=== PATIENT | female | born 1985 | race African-American/Black ===

== ENCOUNTER 2019-02-26 18:34 | Emergency (ER) | payer MEDICAID, OTHER ==
[~2019-02-26] VITALS: Ht 177.8 cm; Wt 108.9 kg
[2019-02-26 19:00] VITALS: BP 120/78
--- NOTE | 2019-02-26 19:01 | NUR ---
ED Nurse Note: Pt is here for Albuterol HHN, ran out of medication x 1 month. AOx4, VSS olga. Will cont to monitor.
--- NOTE | 2019-02-26 19:06 | NUR ---
ED Nurse Note: Received report from Savi/RN. Pt is A/O X 4. VSS, will continue to monitor.
--- NOTE | 2019-02-26 19:06 | Emergency Room Report ---
History of Present Illness General Chief Complaint: Asthma Source: Patient, Medical Record Present Illness HPI 33-year-old female with history of type 2 diabetes and asthma currently controlled with metformin and albuterol inhaler here complaining of asthma exacerbation x1 month. Patient said that she ran out of her albuterol inhaler 2 weeks ago. She is also on Qvar and albuterol nebulizer treatment. Patient denies shortness of breath, chest pain, palpitation, cough, congestion, sore throat, dizziness and headache. Patient is requesting a refill for her inhalers. Patient is currently in no distress is sitting comfortably. Denies history of smoking. Allergies: Coded Allergies: ASPIRIN (Verified Allergy, Unknown, 02/26/19) Patient History Past Medical History: see triage record Past Surgical History: unable to obtain Pertinent Family History: none Last Menstrual Period: 02/19/19 Now: No : 4 Para: 1 Immunizations: UTD Reviewed Nursing Documentation: PMH: Agreed; PSxH: Agreed Nursing Documentation-PMH Hx Hypertension: Yes Hx Diabetes: Yes - Type 2 Hx Cancer: Yes - Breast History Of Psychiatric Problem: Yes - Anxiety, Bipolar Disorder, PTSD Review of Systems All Other Systems: negative except mentioned in HPI Physical Exam Vital Signs Date Time Temp Pulse Resp B/P (MAP) Pulse Ox O2 Delivery O2 Flow Rate FiO2 02/26/19 18:48 98.2 76 18 121/79 (93) 97 Room Air Sp02 EP Interpretation: reviewed, normal General Appearance: normal inspection, well appearing, no apparent distress, alert, GCS 15 Head: normocephalic, atraumatic Eyes: bilateral eye normal inspection, bilateral eye PERRL ENT: normal ENT inspection, hearing grossly normal, normal pharynx Neck: normal inspection, supple Respiratory: chest non-tender, normal breath sounds, no rhonchi, no respiratory distress, wheezing Cardiovascular #1: normal inspection, normal peripheral pulses, regular rate, rhythm, no murmur Gastrointestinal: normal inspection, soft, no bruit Genitourinary: no CVA tenderness Musculoskeletal: back normal Neurologic: normal inspection, alert, oriented x3 Psychiatric: normal inspection, judgement/insight normal Skin: normal inspection, normal color, no rash Lymphatic: normal inspection, no adenopathy Medical Decision Making PA Attestation All diagnoses and treatment plans were reviewed and discussed with my supervising physician Dr. Polanco Diagnostic Impression: Primary Impression: Acute asthma ER Course 33-year-old female with history of type 2 diabetes and asthma currently controlled with metformin and albuterol inhaler here complaining of asthma exacerbation x1 month. Patient said that she ran out of her albuterol inhaler 2 weeks ago. She is also on Qvar and albuterol nebulizer treatment. Patient denies shortness of breath, chest pain, palpitation, cough, congestion, sore throat, dizziness and headache. Patient is requesting a refill for her inhalers. Patient is currently in no distress is sitting comfortably. Denies history of smoking. Ddx considered but are not limited to: bronchitis, PNA, URI viral, bacterial brochitis , asthma Vital signs: are WNL, pt. is afebrile H&PE are most consistent with: Asthma and medication refill ORDERS: Ventolin HFA, Qvar 40, albuterol nebulizer ED INTERVENTIONS: None required at this time. DISCHARGE: At this time pt. is stable for d/c to home. Will provide printed patient care instructions, and any necessary prescriptions. Care plan and follow up instructions have been discussed with the patient prior to discharge. Follow-up with her primary care provider for management of asthma take inhalers as needed Last Vital Signs Date Time Temp Pulse Resp B/P (MAP) Pulse Ox O2 Delivery O2 Flow Rate FiO2 02/26/19 19:00 76 18 Room Air 02/26/19 19:00 98.2 120/78 97 Disposition: HOME, SELF-CARE Condition: Stable Scripts Albuterol Sulfate* (ALBUTEROL SULFATE HHN*) 2.5 Mg/3 Ml Vial.neb 3 ML INH Q6H PRN for Shortness of Breath, #30 EA 0 Refills Prov: Kamala Woodson 02/26/19 Beclomethasone Dipropionate 40MCG Oral Inh (QVAR 40*) 7.3 Gm Aer.w.adap 1 PUFF INH TWICE A DAY, #7.3 GM 0 Refills Prov: Kamala Woodson 02/26/19 Albuterol Sulfate (VENTOLIN HFA) 18 Gm Hfa.aer.ad 2 PUFFS INH EVERY 6 HOURS, #18 GM 0 Refills Prov: Kamala Woodson 02/26/19 Patient Instructions: Asthma, Adult Additional Instructions: Use your inhalers as prescribed follow-up with your primary care provider Kamala Woodson Feb 26, 2019 19:06
[2019-02-26] MEDS ORDERED: VENTOLIN HFA18 GM INH (19:07)
[2019-02-26] MEDS ORDERED: QVAR7.3 GM INH (19:07)
[2019-02-26] MEDS ORDERED: ALBUTEROL2.5 MG/3 M INH (19:07)
[2019-02-26 19:21] VITALS: BP 121/77
--- NOTE | 2019-02-26 19:21 | NUR ---
ER DISCHARGE NOTE: Patient is cleared to be discharged per Kamala Woodson/TEOFILO. Pt is aox4 on room air with stable vital signs. Pt was given dc and prescription instructions. Pt was able to verbalize understanding. Pt's id band removed. Pt is able to ambulate with steady gait and took all belongings.
== END 2019-02-26 19:21 | disposition home or self-care (01) ==
LOC: EMR 19:00
DX: J45.901 Unspecified asthma with (acute) exacerbation (principal); Z79.51 Long term (current) use of inhaled steroids; F41.9 Anxiety disorder, unspecified; F31.9 Bipolar disorder, unspecified; F43.10 Post-traumatic stress disorder, unspecified; E11.9 Type 2 diabetes mellitus without complications; Z85.3 Personal history of malignant neoplasm of breast; Z88.6 Allergy status to analgesic agent; Z79.84 Long term (current) use of oral hypoglycemic drugs; Z76.0 Encounter for issue of repeat prescription
CPT/HCPCS: 99283